=== PATIENT | female | born 1965 | race Caucasian/White ===

== ENCOUNTER → 2019-11-02 10:30 | Outpatient (BNVA) | payer MEDICARE, SELFPAY | PROVIDERS: Family Provider Internal Medicine; PCP Internal Medicine; Visit Provider Internal Medicine | DX: R25.2 Cramp and spasm (principal); E03.9 Hypothyroidism, unspecified; R52 Pain, unspecified; M19.91 Primary osteoarthritis, unspecified site; M96.1 Postlaminectomy syndrome, not elsewhere classified; M99.83 Other biomechanical lesions of lumbar region; Z79.899 Other long term (current) drug therapy; R79.9 Abnormal finding of blood chemistry, unspecified | CPT/HCPCS: 80053; 83036; 84443; 85025 ==

== ENCOUNTER 2021-10-22 11:16 | Emergency (ER) | payer MEDICARE, SELFPAY ==
[2021-10-22 11:24] VITALS: BP 132/77; PULSE 85; RESP 19; TEMP 36.8; O2SAT 96; BMI 21.1
--- NOTE | 2021-10-22 11:57 | W.ED.GENADLT ---
HPI - General Adult General: Chief complaint: Extremity Problem,Nontraumatic Stated complaint: HIP AND BACK PAIN Time Seen by Provider: 10/22/21 11:25 History of Present Illness: CC: Back pain HPI: [55]yo patient w/ hx of prior lumbar laminectomy c/b chronic back pain presenting to the ED with acute atraumatic L glute pain x 5 hrs. Pain started 5 hrs ago while patient was turning to her side and suddenly she felt a sharp and persistent L glute pain. Since onset of pain, patient has had difficulty ambulating and has excruciating pain. Patient said called EMS and was brought to the emergency room for evaluation patients denies trauma to the back, fever/chill/IVDU, LE weakness, saddle anesthesia/bowel incontinence/bladder incontinence, or hx of recent weight loss or cancer. In addition, he does not have a history of kidney stone or urinary symptoms/hx of UTI. Onset: chronic, acutely worsening symptoms x 5 hrs Duration: 5 hrs Location: L glute pain pain with radiation to the L leg Severity: moderate Associated symptoms: Deny chest pain, dyspnea, nausea, rash, palpitations or vomiting Review of Systems Const: Denies: fever(s) or chills Eyes: Denies: change in vision ENMT: Denies: mouth pain Card: Denies: chest pain or palpitations Resp: Denies: dyspnea or non-productive cough GI: Denies: abdominal pain, nausea, vomiting or diarrhea : Denies: dysuria Musc: Reports: other (+ L glute pain); Denies: extremity pain Skin/Breast: Denies: rash or new lesions Neuro: Denies: weakness in extremities Psych: Reports: other (Normal mood) Erick/Lymph: Denies: easy bruising [facility] ED PFSH: Medical History (Updated 10/22/21 @ 13:13 by Warner Cooper MD) Complex regional pain syndrome type 1 affecting shoulder Diabetes mellitus Hyperlipidemia Lumbar post-laminectomy syndrome Neuroforaminal stenosis of lumbosacral spine PAD (peripheral artery disease) RLS (restless legs syndrome) Surgical History S/P bladder repair S/P cholecystectomy S/P hemilaminotomy DR CENTENO- 06/11/2016- LEFT HEMILAMINOTOMY/ DISCECTOMY/ FORAMINOTOMY S/P hysterectomy Family History Other Cancer Diabetes Family history of premature coronary artery disease Hypertension Social History Smoking and tobacco status: never smoked Alcohol intake: current Alcohol intake frequency: few times a month Household members: other Marital status: History of recent travel: No Physical Exam Const: COMMON NORMALS: alert HENMT: COMMON NORMALS: atraumatic HEAD & SCALP: atraumatic MOUTH: moist mucous membranes not abnormal Eye: COMMON NORMALS: EOMs intact bilaterally and conjunctivae normal CONJUNCTIVA: Yes conjunctivae normal Neck/C-Spine: COMMON NORMALS: full ROM and supple Resp: COMMON NORMALS: normal respiratory effort and clear to auscultation bilaterally AUSCULTATION: clear to auscultation bilaterally Cardio: COMMON NORMALS: regular rate RATE: regular rate GI: COMMON NORMALS: Soft to palpation and non-tender PALPATION: Yes Soft to palpation Back/Pelvis: OTHER: + Left glute tenderness palpation, no midline spinal tenderness palpation of the T-spine L-spine C-spine, no signs include erythema, induration or fluctuance Extremity: COMMON NORMALS: full ROM OTHER: +DP/PT pulses intact on the LLE Neuro: SENSORIUM/ORIENTATION: Yes alert MOTOR EXAM: No Abnormal motor strength present and Other motor observations present (no focal motor deficits) Psych: COMMON NORMALS: speech normal SPEECH: Yes normal speech MOOD & AFFECT: Yes euthymic mood Procedures Nerve Block Nerve Block 1: Additional Comments: Risks of procedures in infection, nerve injury, hematoma, and bleeding discussed extensively with patient and alternatives of medical management discussed in detail. Patient elects for the procedure. Trigger point injections of the L glutes - one minor were appreciated on palpitation. Surface cleaned extensively with isopropyl alcohol and chlorohexadine, sterile 7-0 gloves used. 40mg of kenalog mixed 6 cc of lidocaine 1% w/ epi were injected into the sites of pain and pressure. Course Vital Signs: Vital signs: Vital Signs Temperature 98.3 F 10/22/21 11:24 Pulse Rate 82 10/22/21 14:05 Respiratory Rate 18 10/22/21 14:05 Blood Pressure 126/72 10/22/21 14:05 Pulse Oximetry 99 10/22/21 14:05 MDM - General Adult Medical Decision Making [55]yo patient w/ hx of chronic back pain secondary to prior surgeries presenting to the ED with acute L glute pain x 5 hrs. Neurological exam including LE exam intact. The Patient is able to bear weight on legs and ambulate with moderate pain. No red flags of IVDU/fever, hx or symptomatology of cancer w/ mets to the bones, neurological findings or bowel or bladder incontinence, or acute trauma/fracture of the vertebral columns. Intervention: Toradol, norflex, tylenol, lidocaine/epi+kenalog injection [1:1pm] On reassessment, the patient reports the pain is significantly improved with medications. However, patient continues to have persistent pain, decision was made to give patient 0.3 mics per kilo of ketamine, 5% lidocaine patch and 0.5 mg of Dilaudid. Patient is now able to ambulate in the ED with only mild pain. At the present time, I have discussed the importance for the patient to follow up with orthopedics TIFFANIE and the patient agrees. No suspicion for acute cord compression at this time. Rx: norflex, tylenol, lidocaine patch, and menthol PRN pain Disposition: Discharge. Patient is given SRP for any focal weakness, intractable pain, fever/chill, any signs of bowel or bladder incontinence. Patient is instructed to follow up with the orthopedics provider. I have provided an additional orthopedic referral for the patient should the patient need it. Patient verbalizes understanding and plans to do so in the next few regan Discharge Plan Discharge Patient Disposition: Home Clinical Impression: Gluteal pain, Sciatica Condition: Stable Prescriptions: New acetaminophen 500 mg tablet 500 mg PO Q6H PRN (Reason: pain) 5 Days Qty: 20 0RF lidocaine 5 % adhesive patch,medicated 1 patch topical DAILY PRN (Reason: pain) 30 Days Qty: 30 0RF Rx Instructions: leave on most painful area for up to 12 hrs orphenadrine citrate 100 mg tablet extended release 100 mg PO BID PRN (Reason: pain) 10 Days Qty: 20 0RF Biofreeze (menthol) 5 % gel 1 ea topical BID PRN (Reason: pain) 10 Days Qty: 1 0RF No Action celecoxib 200 mg capsule 200 mg PO BID Qty: 60 6RF cyclobenzaprine 10 mg tablet 10 mg PO TID PRN (Reason: muscle spasm) Qty: 90 3RF estradiol 0.01 % (0.1 mg/gram) cream 1 gm VAGINAL ONCE 0RF amlodipine 5 mg tablet 5 mg PO DAILY 0RF metformin 1,000 mg tablet extended release 24hr 2,000 mg PO DAILY Qty: 180 3RF chlorpromazine 25 mg tablet 25 mg PO Q6H PRN (Reason: nausea and vomiting) Qty: 60 3RF Invokana 300 mg tablet 300 mg PO QAM Qty: 30 3RF simvastatin 40 mg tablet See Rx Instructions .ROUTE .COMPLEX Qty: 30 3RF Dose Instruction: TAKE ONE TABLET BY MOUTH DAILY Rx Instructions: TAKE ONE TABLET BY MOUTH DAILY clonazepam [Klonopin] 0.5 mg tablet 0.5 mg PO BID PRN (Reason: anxiety) Qty: 180 0RF zolpidem 10 mg tablet 10 mg PO .hs Qty: 30 3RF tramadol 50 mg tablet 50 mg PO Q6H PRN (Reason: pain) Qty: 90 3RF Rx Instructions: 340b amlodipine 10 mg tablet See Rx Instructions .ROUTE .COMPLEX Qty: 90 0RF Dose Instruction: TAKE ONE TABLET BY MOUTH ONCE DAILY Rx Instructions: TAKE ONE TABLET BY MOUTH ONCE DAILY venlafaxine 75 mg capsule,extended release 24hr See Rx Instructions .ROUTE .COMPLEX Qty: 90 0RF Dose Instruction: TAKE THREE CAPSULES BY MOUTH DAILY Rx Instructions: TAKE THREE CAPSULES BY MOUTH DAILY Discharge Orders: Discharge ED (Routine); Ordered 10/22/21 Ordered By: Warner Cooper Referrals: Hermes Eubanks MD [Primary Care Provider] - Discharge Diet: Advance as tolerated Discharge Activity: Increase activity as tolerated Patient Instructions: Back Pain (ED) Activity Restrictions/Additional Instructions: Please come back to the emergency room to have worsening back pain, if have any problem with urination and bowel movements or if you have any weakness in the legs, numbness in the legs, or if you have any new or concerning complaints. Coding Level of Care Code ED Receiving Teller for Judah Shaw Exam Comprehensive
[2021-10-22] MEDS: acetaminophen 500 mg Tablet PO (12:13)
[2021-10-22] MEDS: ketorolac 30 mg/mL INJ IVP (12:14)
[2021-10-22] MEDS: triamcinolone 40 mg/mL SDV IM (12:14)
[2021-10-22] MEDS: orphenadrine 30 mg/mL Inj 2 mL 60 MG IVP (12:15)
[2021-10-22] MEDS: sodium chloride 0.9% 100 ML 999 ML IV (13:07)
[2021-10-22] MEDS: dexamethasone 10 mg/mL INJ IVP (13:55)
[2021-10-22] MEDS: HYDROmorphone 1 mg/mL INJ 1 mL 0.5 MG IVP (13:56)
[2021-10-22] MEDS: lidocaine 5% Patch 1 PATCH TOPICAL (13:58)
[2021-10-22 14:05] VITALS: BP 126/72; PULSE 82; RESP 18; O2SAT 99
== END 2021-10-22 14:07 | disposition home or self-care (01) ==
PROVIDERS: Emergency Provider Emergency Medicine; PCP Internal Medicine
DX: M54.30 Sciatica, unspecified side (principal); Z79.84 Long term (current) use of oral hypoglycemic drugs; E11.9 Type 2 diabetes mellitus without complications; E78.5 Hyperlipidemia, unspecified
CPT/HCPCS: 96374; 96375; 99284; J1100; J1170; J1885; J2360; J3301; J3490; J7040